=== PATIENT | male | born 1955 | race Two or more races ===

== ENCOUNTER 2019-03-01 19:00 | Inpatient (IN) | payer BC, OTHER ==
[~2019-03-01] VITALS: Ht 180.3 cm; Wt 88.0 kg
[2019-03-01 19:29] LABS: BASOPHILS % (AUTO) 0.8 % (0.0-2.0); EOSINOPHILS % (AUTO) 2.4 % (0.0-6.0); HEMATOCRIT 46 % (39-51); HEMOGLOBIN 15.5 g/dL (13.5-17.5); LYMPHOCYTES # (AUTO) 1.7 /CMM (0.8-4.8); LYMPHOCYTES % (AUTO) 38.6 % (20.0-44.0); MEAN CORPUSCULAR HGB CONC 34 g/dl (31.0-36.0); MEAN CORPUSCULAR VOLUME 99 fL (80-96); MONOCYTES # (AUTO) 0.5 /CMM (0.1-1.30); MONOCYTES % (AUTO) 12.1 % (2.0-12.0); NEUTROPHILS % (AUTO) 46.1 % (43.0-81.0); PLATELET COUNT (AUTO) 153 /CMM (150-450); RED BLOOD CELL COUNT(AUTO) 4.63 MIL/uL (4.5-6.0); WHITE BLOOD COUNT (AUTO) 4.4 K/uL (4.3-11.0)
--- NOTE | 2019-03-01 19:32 | NUR ---
BIBSELF FROM HOME. TO ER BED 11. AAOX4. NO RESP DISTRESS NOTED. AMBULATORY. C/O PALPITATION. PT REPORTS THAT PALPITATIONS STARTED ON SUNDAY WITH FEELING OF POUNDING ON HIS CHEST. PT DENIES PAIN OTHERWISE. PT IS SINUS JANET, REPORTS TAKING METOPROLOL. MD WAS AT BEDSIDE FOR EVAL. ORDERS RECEIVED NOTED AND CARRIED OUT. EKG DONE. IV LINE OBTAINED ON R AC 18G. BLOOD DRAWN AND GIVEN TO GENERAL INTERNAL MEDICINE PHYSICIAN AT BEDSIDE.
[2019-03-01 19:44] LABS: CALCIUM, SERUM 9.1 mg/dL (8.5-10.1); CREATININE 1.1 mg/dL (0.6-1.3); POTASSIUM 4.1 mmol/L (3.5-5.1)
--- NOTE | 2019-03-01 20:05 | NUR ---
CALLED CRACKER AND COOKIE MACHINE OPERATOR TEACHER [facility]. CURRENTLY SPEAKING WITH ER
--- NOTE | 2019-03-01 20:17 | NUR ---
CALLED [employer]. YOUTH SUPPORT WORKER WAS PAGED.
--- NOTE | 2019-03-01 20:20 | NUR ---
CALLED [facility] FOR ICU BED
[2019-03-01] MEDS ORDERED: HYDROCODONE/APAP 5/325MG 1 EACH TABLET PO PRN (20:30)
[2019-03-01] MEDS ORDERED: Z GUARD REMEDY 2 OZ OINT TP PRN (20:30)
[2019-03-01] MEDS ORDERED: ZOLPIDEM TARTRATE 5 MG TABLET PO PRN (20:30)
[2019-03-01] MEDS ORDERED: ONDANSETRON HCL/PF 4 MG/2 ML VIAL IVP PRN (20:30)
[2019-03-01] MEDS ORDERED: MAGNESIUM HYDROXIDE 30 ML UDC PO PRN (20:30)
[2019-03-01] MEDS ORDERED: ACETAMINOPHEN 325 MG TABLET PO PRN (20:30)
[2019-03-01] MEDS ORDERED: ENOXAPARIN SODIUM 60 MG/0.6 ML DISP.SYRIN SQ ONE (20:53)
[2019-03-01] MEDS ORDERED: ENOXAPARIN SODIUM 30 MG/0.3 ML DISP.SYRIN ONE (20:53)
[2019-03-01] MEDS: ENOXAPARIN SODIUM 80 MG/0.8 ML DISP.SYRIN SQ SCH (21:02)
--- NOTE | 2019-03-01 21:35 | NUR ---
REPORT GIVEN TO MARY VAN FOR ZABRINA. TO 104
[2019-03-01] MEDS ORDERED: ATORVASTATIN 40 MG TABLET PO SCH (22:00)
--- NOTE | 2019-03-01 22:15 | NUR ---
RECEIVED PATIENT FROM ED VIA GURNEY IN STABLE CONDITION. PATIENT AWAKE, A/OX4, AND ABLE TO PROVIDE HISTORY. NO C/O CHEST PAIN OR CHEST PALPITATIONS OR GENERALIZED BODY PAIN/DISCOMFORT. PERIPHERAL LINE INTACT AND PATENT. ENCOURAGED USE OF CALL LIGHT FOR ASSISTANCE AND VERBALIZED GOOD UNDERSTANDING. ROOM FREE OF CLUTTER AND CALL LIGHT/BELONGINGS KEPT NEAR BEDSIDE. WILL CONTINUE TO MONITOR.
--- NOTE | 2019-03-01 22:16 | NUR ---
PT TRANSPORTED TO UNIT ON [facility] WITH EMT AND RN AT BEDSIDE W/ ACLS PROTOCOL. NAD NOTED DURING TRANSPORT. PT AMBULATED FROM GURNEY TO BED W/O ASSISTANCE
[2019-03-02] VITALS (9 sets, daily range): BP systolic 111–137; BP diastolic 58–90
--- NOTE | 2019-03-02 06:34 | NUR ---
MS RN NOTES PATIENT ASLEEP IN BED WITH NO DISTRESS NOTED. CALL LIGHT WITHIN REACH. ALL DUE MEDS GIVEN ORDERED WITH NO ASE NOTED. NO C/O PAIN OR DISCOMFORT. PERIPHERAL LINE INTACT AND PATENT. BED IN LOW LOCK SETTING. ROOM FREE OF CLUTTER AND BELONGINGS KEPT NEAR BEDSIDE. WILL ENDORSE TO ONCOMING SHIFT.
--- NOTE | 2019-03-02 07:16 | NUR ---
BUSINESS CONTINUITY CONSULTANT OPENING NOTES RECEIVED REPORT FROM [facility] SHIFT NURSE. PT AWAKE IN BED, ALERT AND ORIENTED X 4, ON ROOM AIR, SATURATING WELL, NO SIGNS OF RESPIRATORY DISTRESS NOTED, RESPIRATIONS EVEN AND UNLABORED. IV SITE ON RIGHT AC G18 WITH SALINE LOCK PATENT AND INTACT. SINUS JANET ON DATABASE ENGINEER, HR 44. INTRODUCED SELF TO PT, DISCUSSED PLAN OF CARE. BED IN LOW POSITION, LOCKED, CALL LIGHT WITHIN REACH.
[2019-03-02 07:32] LABS: BASOPHILS % (AUTO) 0.4 % (0.0-2.0); EOSINOPHILS % (AUTO) 1.9 % (0.0-6.0); HEMATOCRIT 46 % (39-51); HEMOGLOBIN 15.4 g/dL (13.5-17.5); LYMPHOCYTES # (AUTO) 1.8 /CMM (0.8-4.8); LYMPHOCYTES % (AUTO) 36.3 % (20.0-44.0); MEAN CORPUSCULAR HGB CONC 34 g/dl (31.0-36.0); MEAN CORPUSCULAR VOLUME 98 fL (80-96); MONOCYTES # (AUTO) 0.4 /CMM (0.1-1.30); NEUTROPHILS # (AUTO) 2.6 /CMM (1.8-8.9); NEUTROPHILS % (AUTO) 52.4 % (43.0-81.0); PLATELET COUNT (AUTO) 151 /CMM (150-450); RED BLOOD CELL COUNT(AUTO) 4.63 MIL/uL (4.5-6.0); WHITE BLOOD COUNT (AUTO) 4.9 K/uL (4.3-11.0)
[2019-03-02] MEDS: ENOXAPARIN SODIUM 80 MG/0.8 ML DISP.SYRIN SQ SCH ×2 (07:40→21:03)
[2019-03-02 07:43] LABS: CALCIUM, SERUM 8.7 mg/dL (8.5-10.1); MAGNESIUM 2.3 mg/dL (1.8-2.4); PHOSPHORUS 3.5 mg/dL (2.5-4.9); POTASSIUM 4.1 mmol/L (3.5-5.1)
[2019-03-02] MEDS ORDERED: METO25TA4 PO (07:49)
[2019-03-02] MEDS ORDERED: LOSA50TA39 PO (07:49)
[2019-03-02] MEDS ORDERED: ASPI-1169 PO (07:49)
[2019-03-02] MEDS ORDERED: ATOR40TA PO (07:49)
[2019-03-02] MEDS ORDERED: ASPIRIN 81 MG TAB.CHEW PO SCH (09:00)
[2019-03-02] MEDS: METOPROLOL SUCCINATE 25 MG TAB.SR.24H PO SCH ×2 (12:47→17:40)
[2019-03-02] MEDS: LOSARTAN POTASSIUM 50 MG TABLET PO SCH ×2 (12:48→17:59)
[2019-03-02] MEDS ORDERED: IV NS 0.9% 250 ML IV ONE (14:10)
[2019-03-02] MEDS ORDERED: CT SWABBABLE VALVE TRANS SET 1 EA INFUS.SET MC ONE (14:10)
[2019-03-02] MEDS ORDERED: IOHEXOL-350 100 ML VIAL IV ONE (14:10)
--- NOTE | 2019-03-02 15:07 | NUR ---
RN [facility] UNABLE TO DO TEST DUE TO EQUIPMENT MALFUNCTION. PT RETURNED BACK TO ROOM.
--- NOTE | 2019-03-02 16:00 | NUR ---
CALLED [facility] TO REACH DR. LEBRON TO NOTIFY HIM OF EQUIPMENT MALFUNCTION- SPOKE WITH YASEMIN, WAITING FOR MD CALL BACK
--- NOTE | 2019-03-02 17:56 | NUR ---
DR LEBRON MADE AWARE OF PENDING TRANSFER- C.O.D. AUDIT CLERK GERONIMO IS WORKING ON TRANSFER TO ANOTHER HOSPITAL FOR [facility].
--- NOTE | 2019-03-02 18:44 | NUR ---
SMOOTH PLATER CLOSING NOTES PT AWAKE IN BED, ALERT AND ORIENTED X 4, ON ROOM AIR, SATURATING WELL, NO SIGNS OF RESPIRATORY DISTRESS NOTED, RESPIRATIONS EVEN AND UNLABORED. IV SITE ON RIGHT AC G18 WITH SALINE LOCK PATENT AND INTACT. SINUS JANET WITH PVC ON RECORDING CLERK, HR 54. BED IN LOW POSITION, LOCKED, CALL LIGHT WITHIN REACH. ENDORSED TO NOC SHIFT NURSE.
--- NOTE | 2019-03-02 19:27 | NUR ---
COMMERCIAL STRIPPER NOTE RECEIVED PT IN STABLE CONDITION A/O X4, CURRENTLY IN BED WATCHING TV. NO SIGNS OF SOB OR DISTRESS. NO COMPLAINTS OF PAIN OR N/V. TELE MONITOR: SINUS JANET [id number]. IV IN RAC #[address] S/L. ALL CURRENT NEEDS ATTENDED TO. BED LOW, LOCKED, UPPER RAILS UP, AND CALL LIGHT WITHIN REACH. WILL CONT TO MONITOR. PT NOTIFIED OF CURRENT TRANSFER SITUATION, PT VERBALIZES UNDERSTANDING.
--- NOTE | 2019-03-02 19:57 | NUR ---
RIGHT OF WAY BUYER NOTE SPOKE WITH GERONIMO MACK, SHE STATES THAT INSURANCE WILL CALL FLOOR ONCE IS AVAILABLE FOR TRANSFER. WILL CONT TO MONITOR.
--- NOTE | 2019-03-02 20:53 | NUR ---
COMMUNITY PLACEMENT WORKER NOTE BIPIN FROM [facility] CALLED WITH UPDATE OF A BED AT [facility]. ANIMATION DIRECTOR IS 0000. PT TO GO TO BED 581 . [facility] [phone], NO TRIP NUMBER WAS GIVEN. PT MADE AWARE.
--- NOTE | 2019-03-02 21:27 | NUR ---
RISK TECH NOTE NOTIFIED DR. ROCA OF PT TRANSFER TO [facility], STATES THAT HE WILL FINISH THE DISCHARGE ORDERS AND MED RECON.
[2019-03-02] MEDS ORDERED: ATORVASTATIN 40 MG TABLET PO SCH (22:00)
--- NOTE | 2019-03-02 23:40 | NUR ---
VISUAL TRAINING AIDE NOTE PT DEPARTED FLOOR VIA GURNEY ACCOMPANIED BY AMBULANCE STAFF. PT WAS IN STABLE CONDITION A/O X4, NO SIGNS OF SOB OR DISTRESS, NO C/O PAIN OR N/V. TELE MONITOR: SB 57. ALL NEEDS RENDERED, SAFETY PRECAUTIONS IN PLACE. ALL DISCHARGE PAPERWORK SIGNED AND D/C TEACHING DONE WITH PT WITH VERBALIZATION OF UNDERSTANDING. BODY ASSESSED, WITH PHOTOS TAKEN. ALL BELONGINGS ACCOUNTED AND SIGNED FOR. ID BAND REMOVED. PT TRANSFERRING TO [facility] TO BED 581 REPORT WAS GIVEN TO SANTOSH SANCHES RN. DEPARTING VITALS: 97.0, 52, 18, 98%, 138//80.
[2019-03-03] MEDS ORDERED: ASPIRIN 81 MG TAB.CHEW PO SCH (09:00)
== END 2019-03-03 00:27 | disposition short-term general hospital (02) | DRG 282 ==
LOC: ER 19:00 → TELE1 22:02
PROVIDERS: ADMIT Nurse Practitioner Acute Care; ATTEND Internal Medicine
DX: I21.4 Non-ST elevation (NSTEMI) myocardial infarction (principal); I25.10 Atherosclerotic heart disease of native coronary artery without angina pectoris; E78.5 Hyperlipidemia, unspecified; I10 Essential (primary) hypertension; I25.2 Old myocardial infarction
CPT/HCPCS: 36415; 71045-TC; 80048-TC; 80061-TC; 83735-TC; 84100-TC; 84484-TC; 85025-TC; 93307-TC; G0378; J1650; J7050; Q9967